=== PATIENT | female | born 2005 | race Caucasian/White ===

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

== ENCOUNTER 2025-08-25 16:13 | Emergency (ER) | payer MEDICAID ==
[2025-08-25 16:23] VITALS: BP 118/62; PULSE 60
== END 2025-08-25 16:54 | disposition home or self-care (01) ==
LOC: LB.ED 16:13
DX: H10.11 Acute atopic conjunctivitis, right eye (principal); F17.200 Nicotine dependence, unspecified, uncomplicated
CPT/HCPCS: 99282; 99283